=== PATIENT | male | born 1985 | race Caucasian/White ===

== ENCOUNTER → 2019-08-29 09:15 | Outpatient (CLI) | payer OTHER, SELFPAY ==
[2019-03-13 11:37] VITALS: BMI 34.0
[2019-08-29 12:49] LABS: Anion Gap 8 (5-15); BUN 15 mg/dL (7-18); BUN/Creat Ratio 17.3 RATIO (10-20); Chloride 106 mmol/L (98-107); Cholesterol 175 mg/dL (200); Creatinine, Serum 0.87 mg/dL (0.70-1.30); EST Glomerular Filtration Rate 106 mL/min (>60); Est Glom Filt Rate - Afr Amer 128 mL/min (>60); Glucose 97 mg/dL (74-106); High Density Lipoprotein 41 mg/dL; Potassium 3.7 mmol/L (3.5-5.1); Sodium Level 139 mmol/L (136-145); Triglycerides 140 mg/dL; Very Low Density Lipoprotein 28 mg/dL (5-40)
== END ==
PROVIDERS: PCP Family Medicine; Referring Provider Family Medicine; Visit Provider Family Medicine
DX: I10 Essential (primary) hypertension (principal); E78.5 Hyperlipidemia, unspecified
CPT/HCPCS: 36415; 80048; 80061

== ENCOUNTER → 2019-11-07 10:18 | Outpatient (CLI) | payer OTHER, SELFPAY ==
[2019-10-09 13:43] VITALS: BMI 34.0
--- NOTE | 2019-11-07 10:21 | RAD_ITS ---
STUDY: X-RAY - LUMBAR SPINE REASON FOR EXAM: Male, 34 years old. spasm of lumbar paraspinous muscle TECHNIQUE: 5 view(s) of the lumbar spine were obtained. COMPARISON: Lumbar spine series 01/17/2014 FINDINGS: There is straightening of the normal lumbar lordosis. There is no substantial scoliosis. There is a normal alignment of the vertebrae. Normal vertebral bodies and endplates. Normal disc space heights. The soft tissue structures are unremarkable. RAD/L/S Spine Min 4 Views IMPRESSION: There is straightening of the normal lordotic curve, a nonspecific finding, which may be due to positioning or which might be due to muscle spasm. Electronically Signed: Alejandra Rodriguez MD at 4:32 EDT , Service support ,
== END ==
PROVIDERS: PCP Family Medicine; Referring Provider Family Medicine; Visit Provider Family Medicine
DX: M62.830 Muscle spasm of back (principal)
CPT/HCPCS: 72110

== ENCOUNTER → 2020-10-26 09:12 | Outpatient (CLI) | payer OTHER, SELFPAY ==
[2019-10-09 13:43] VITALS: BMI 34.0
[2020-10-26 10:36] LABS: Anion Gap 5 (5-15); BUN 11 mg/dL (7-18); BUN/Creat Ratio 13.1 RATIO (10-20); Chloride 108 mmol/L (98-107); Cholesterol 171 mg/dL (200); Creatinine, Serum 0.84 mg/dL (0.70-1.30); EST Glomerular Filtration Rate 109 mL/min (>60); Est Glom Filt Rate - Afr Amer 132 mL/min (>60); Glucose 93 mg/dL (74-106); High Density Lipoprotein 50 mg/dL; Potassium 3.9 mmol/L (3.5-5.1); Sodium Level 139 mmol/L (136-145); Triglycerides 90 mg/dL; Very Low Density Lipoprotein 18 mg/dL (5-40)
[2020-10-26 10:38] LABS: Vitamin D,25 Hydroxy 37.4 ng/mL
== END ==
PROVIDERS: PCP Family Medicine; Referring Provider Family Medicine; Visit Provider Family Medicine
DX: Z00.00 Encounter for general adult medical examination without abnormal findings (principal)
CPT/HCPCS: 36415; 80048; 80061; 82306

== ENCOUNTER 2021-05-22 17:08 | Outpatient (CLI) | payer OTHER, SELFPAY ==
--- NOTE | 2021-05-22 17:21 | RAD_ITS ---
STUDY: X-RAY - LUMBAR SPINE REASON FOR EXAM: Male, 35 years old. Low back pain TECHNIQUE: 5 view(s) of the lumbar spine were obtained. COMPARISON: 11/07/2019 FINDINGS: Normal lumbar lordosis. There is no substantial scoliosis. There is a normal alignment of the vertebrae. Normal vertebral bodies and endplates. Normal disc space heights in the upper lumbar spine with mild disc space narrowing at L4-5 and L5-S1. There is no demonstrated fracture. The soft tissue structures are unremarkable. RAD/L/S Spine Min 4 Views IMPRESSION: Degenerative changes with disc space narrowing at L4-5 and L5-S1. No fracture or suspicious osseous lesion. No interval change Electronically Signed: Zachary Storey MD at 10:13 EST ,
== END 2021-05-22 23:59 | disposition home or self-care (01) ==
LOC: MTRAD 17:10
PROVIDERS: PCP Family Medicine; Referring Provider Family Medicine; Visit Provider Family Medicine
DX: M53.9 Dorsopathy, unspecified (principal)
CPT/HCPCS: 72110

== ENCOUNTER 2021-06-20 16:30 | Outpatient (RCR) | payer OTHER, SELFPAY ==
--- NOTE | 2021-05-28 16:43 | HP.PTEVAL ---
Patient's Visit Information MACARENA TEIXEIRA JR is a 35 year old M referred to Physical Therapy by Dr. Jeremiah Dunlap MD with a diagnosis of BACK DISORDER. Date of Evaluation: 05/28/21 Physical Therapist: Macarena Carrera, PT, Cert MDT, OCS - Visit Plan Frequency: 2x /Week Duration: 4 Weeks Plan: PT INTERVETIONS MODALTIES FOR PAIN ,GRADED BETZY EX'S ,GRADED DLS ABD/BACK, MANUAL THERAPY , ANR STRETCHING,POSTURE/MOCHANICS AND ACTIVITY MODIFICATION - Subjective This 35 y/o male presents to physical therapy with back disorder. Patient has right lumbar pain for several years. Patient symptoms occur with a hard sneeze ,bending, lifting which has been intermittent. Patient had episode pain in right lumbar. 2020 in bed with severe pain. Most recently, patient developed pain working outside shoveling snow ,work on car ,then put up towel hook caused severe pain right lumbar Apr 01 ,then Apr 04 pain radiating pain lateral hip to lateral thigh which described as ache. Seen chiropractor did help. Seen family DR ,x-rays ,DDD L4-5,L5-S1 . Aggravating bending, lifting , sitting, driving. Pain is affecting sleeping. Alleviating factors change position . C/O paresthesia dorsal foot. Coughing/sneezing+ . Bowel/bladder -.Patient pain affects QOL and job demands . SOCAIL: . VOCATION: [employer] - Pain Right Back Pain Intensity (Out of 10): 2 Pain Intensity Range: 10 Right Lower Extremity Pain Intensity (Out of 10): 3 - Objective POSTURE: mild forward posture. NEURO: paresthesia/tingling right toes, reflexes L3-4,L4-5,L5-S1 2/3. SYMTRIES : align. GAIT: normal margot reciprocal pattern slight antalgic gait right side. + ANR. MMT (peak force): right quads 17.2,hamstrings 20.5, hip 30.4,ankle 22.5 ,left WFL. LUMBAR ROM: flexion mod loss pain, extension mod loss pain , side glides min glides - Special Tests L/S Slump test left side: Negative L/S Slump test right side: Positive L/S Left Straight Leg Raise: Negative L/S Right Straight Leg Raise: Positive Lumbar Standing: Flexion - Mechanical Response: No effect Lumbar Standing: Flexion - Symptoms During Testing: Peripheralizing Lumbar Standing: Flexion - Symptoms After Testing: Worse Comments:: HIP Lumbar Standing: Extension - Mechanical Response: No effect Lumbar Standing: Extension - Symptoms During Testing: Increases Lumbar Standing: Extension - Symptoms After Testing: Worse Comments:: RIGHT LUMBAR Lumbar Standing: Right Side Glides - Mechanical Response: No effect Lumbar Standing: Right Side [place] - Symptoms During Testing: Increases Lumbar Standing: Right Side [place] - Symptoms After Testing: No worse Lumbar Standing: Left Side [place] - Mechanical Response: No effect Lumbar Standing: Left Side [place] - Symptoms During Testing: No effect Lumbar Standing: Left Side [place] - Symptoms After Testing: No effect Lumbar Lying: Flexion - Mechanical Response: No effect Lumbar Lying: Flexion - Symptoms During Testing: Peripheralizing Lumbar Lying: Flexion - Symptoms After Testing: Worse Lumbar Lying: Extension - Mechanical Response: No effect Lumbar Lying: Extension - Symptoms During Testing: Increases Lumbar Lying: Extension - Symptoms After Testing: Worse Comments:: BACL LATERAL LEG - Balance/Special Test Scores Oswestry Low Back Score: 29 - Goals Goal 1:: I with HEP for lumbar spine Goal Time Frame: 4-6 Weeks Goal 2:: Patient to increase posture/body mechanics 90% of the time. Goal Time Frame: 4-6 Weeks Goal 3:: Patient demonstrate 50% improvement with decrease pain and improved function Goal Time Frame: 4-6 Weeks Goal 4:: Patient to improve lumbar ROM for function of recovery to lift and tie shoes Goal Time Frame: 4-6 Weeks Goal 5:: Patient to improve back oswestry score by 5 points to improve QOL and function. Goal Time Frame: 4-6 Weeks Goal 6:: Patient to increase strength right leg by 10 peak force to improve gait . Goal Time Frame: 4-6 Weeks - Rehabilitation Potential Physical Therapy Diagnosis: This patient has lumbar radiculopathy with derangement with possible HNP with + ANR ,pain with positioning, motion testing. +SLR ,weakness thus benefit from skilled PT. Rehabilitation Potential: Good - Anticipated Interventions Patient/Client Instruction: Educate patient on: Condition, Plan of Care For the Purpose of:: To decrease pain, To increase ROM, To improve muscle performance and motor function, To improve ability to perform ADL's, To increase tolerance to activity/condition/position, To improve performance and independence with ADL's, To improve ability of physical actions for home/community/work/leisure, To improve health of tissue, To decrease soft tissue restriction, To increase flexibility/ROM, To reduce risk of recurrence Therapeutic Exercise to Include: Strength training, Body mechanics, Postural training, Flexibilty training, Dynamic Lumbar Stabilization, Betzy Exercises For the Purpose of:: To decrease pain, To increase ROM, To improve muscle performance and motor function, To improve ability to perform ADL's, To increase tolerance to activity/condition/position, To improve ability of physical actions for home/community/work/leisure, To improve gait and locomotor functions, To decrease soft tissue restriction, To increase flexibility/ROM, To reduce risk of recurrence, To prevent re-injury Manual Therapy Techniques to Include: Mobilization Comment: LUMBAR For the Purpose of:: To decrease pain, To increase ROM, To improve muscle performance and motor function, To increase tolerance to activity/condition/position, To improve ability of physical actions for home/community/work/leisure, To improve gait and locomotor functions, To improve health of tissue, To decrease soft tissue restriction, To increase flexibility/ROM, To reduce risk of recurrence, To prevent re-injury TENS: Yes IF ES: Yes Cryotherapy (ice pack, ice massage): Yes Thermo therapy (hot pack): Yes Ultrasound (thermal/non thermal): Yes For the Purpose of:: To decrease pain, To decrease swelling/inflammation, To improve health of tissue, To decrease soft tissue restriction Thank you for the opportunity to evaluate your patient. For Medicare and Medicare HMO plans, please review the plan of care and approve it. It will need to be FAXED BACK to us at [phone] for Medicare purposes. For Medicare only, by signing this I certify the plan of care. Please let me know if there are questions or concerns regarding this plan of care. Physician Signature: Date:
--- NOTE | 2021-11-20 13:42 | HP.PTDCSUM ---
It has been my pleasure to treat MACARENA TEIXEIRA referred by Dr. Jeremiah Dunlap MD, with the diagnosis of BACK DISORDER for a total of 7 visit(s). Discharge Date: Please see the following information for a summary of their discharge status. Subjective: Plan to have MRI next .. Sat. back pain with ache right Right Back Pain Intensity (Out of 10): 1 Right Lower Extremity Pain Intensity (Out of 10): 1 % Improvement: 40 Objective/Function: [place] WELL PROGRESSING WITH BETZY EX'S IIMPROVED FUNCTION OF RECOVERY ABLE TO PROGRESS WITH DLS. + ANR RIGHT SIDE ,. CONTS WITH RIGHT LOW BACK PAIN OCCASSIOANL SHARP PAIN ,ACHE LATERAL HIP Goal 1:: I with HEP for lumbar spine Goal 2:: Patient to increase posture/body mechanics 90% of the time. Goal 3:: Patient demonstrate 50% improvement with decrease pain and improved function Goal 4:: Patient to improve lumbar ROM for function of recovery to lift and tie shoes Goal 5:: Patient to improve back oswestry score by 5 points to improve QOL and function. Goal 6:: Patient to increase strength right leg by 10 peak force to improve gait . Plan: PLAN FOR MRI. PT INTERVETIONS MODALTIES FOR PAIN ,GRADED BETZY EX'S ,GRADED DLS ABD/BACK, MANUAL THERAPY , ANR STRETCHING,POSTURE/MOCHANICS AND ACTIVITY MODIFICATION If there are questions or concerns regarding this patient's physical therapy, please feel free to call me at [phone]. Thank you for the referral of this patient. Sincerely, Macarena Carrera, PT, Cert MDT, OCS Balance/Gait/Functional tests - Balance/Special Test Scores Oswestry Low Back Score: 10
== END 2021-06-20 19:00 | disposition home or self-care (01) ==
LOC: PT 16:30
PROVIDERS: PCP Family Medicine; Referring Provider Family Medicine; Visit Provider Family Medicine
DX: M53.9 Dorsopathy, unspecified (principal)
CPT/HCPCS: 97014; 97035; 97110; 97162; 97530; G0283

== ENCOUNTER 2021-06-29 07:14 | Outpatient (CLI) | payer OTHER, SELFPAY ==
--- NOTE | 2021-06-29 07:19 | MRI_ITS ---
STUDY: MRI LUMBAR SPINE WITHOUT CONTRAST REASON FOR EXAM: Male, 35 years old. Lumbar back pain TECHNIQUE: Standardized fat and water weighted pulse sequences were obtained in the sagittal and axial planes. COMPARISON: Lumbar spine x-ray dated May 22, 2021 FINDINGS: T12-L1: Normal endplates. Normal disc height, hydration and morphology. Normal bilateral facet joints. Normal central canal and bilateral lateral recesses. Normal bilateral intervertebral neural foramina. Normal lumbar lordosis. There is no substantial scoliosis. Normal conus medullaris that terminates at the L1 level. No fracture or marrow edema. L1-2: Normal endplates. Normal disc height, hydration and morphology. Normal bilateral facet joints. Normal central canal and bilateral lateral recesses. Normal bilateral intervertebral neural foramina. L2-3: Normal endplates. Normal disc height, hydration and morphology. Normal bilateral facet joints. Normal central canal and bilateral lateral recesses. Normal bilateral intervertebral neural foramina. L3-4: Normal endplates. Normal disc height, hydration and morphology. Normal bilateral facet joints. Normal central canal and bilateral lateral recesses. Normal bilateral intervertebral neural foramina. L4-5: Normal endplates. Diffuse disc desiccation and mild disc space narrowing with a large midline inferior subligamentous disc extrusion. The extruded disc material travels 0.83 cm below the intervertebral disc space but is not sequestered. Moderate central canal stenosis and bilateral lateral recess stenosis is present. Normal bilateral facet joints. Normal bilateral intervertebral neural foramina. Slight retrolisthesis of L4 and L5 of 2 mm. L5-S1: Normal endplates. Diffuse disc desiccation and mild disc space narrowing. A large midline and right paracentral disc extrusion is present measuring 1.34 x 1.33 cm and contributing to right lateral recess stenosis with nerve root compression as well as moderate central canal stenosis. Normal bilateral facet joints. Normal left lateral recess. Normal bilateral intervertebral neural foramina. Normal visualized sacral ala. Normal visualized paraspinous soft tissue structures. MRI/Spine Lumbar (Routine) IMPRESSION: 1. Disc extrusions at L4-L5 and L5-S1 resulting in moderate central canal stenosis. Electronically Signed: Huseyin Pfeiffer MD at 14:04 EDT ,
== END 2021-06-29 23:59 | disposition home or self-care (01) ==
PROVIDERS: PCP Family Medicine; Referring Provider Family Medicine; Visit Provider Family Medicine
DX: M53.9 Dorsopathy, unspecified (principal)
CPT/HCPCS: 72148

== ENCOUNTER → 2023-07-06 | Outpatient (CLI) | payer OTHER, SELFPAY ==
--- NOTE | 2023-07-06 16:25 | RAD_ITS ---
EXAM: XR LEFT FINGERS, 2 OR MORE VIEWS CLINICAL INDICATION: INFECTION OF THUMB TECHNIQUE: Frontal, lateral and oblique views of the fingers of the left hand. COMPARISON: No relevant prior studies available. FINDINGS: BONES/JOINTS: Unremarkable. No acute fracture. No subluxation. Normal alignment. Preservation of the joint space. No sclerotic or destructive changes observed. SOFT TISSUES: Unremarkable. No soft tissue swelling or gas. No radiopaque foreign body. RAD/Finger(s) Min 2 Views IMPRESSION: Negative x-rays of the visualized left fingers. Electronically Signed: Darrell Lim MD at 0:01 EDT ,
== END | disposition home or self-care (01) ==
PROVIDERS: PCP Family Medicine; Referring Provider Family Medicine; Visit Provider Family Medicine
DX: L08.9 Local infection of the skin and subcutaneous tissue, unspecified (principal)
CPT/HCPCS: 73140